=== PATIENT | female | born 1985 | race Hispanic/Latino ===

== ENCOUNTER 2018-11-10 12:14 | Day surgery (SDC) | payer BC ==
[2018-11-10] MEDS: NACL 0.9% 500 ML 500 ML IV SCH ×2 (13:26→15:15)
[2018-11-10] MEDS ORDERED: ADRENALIN ONE (14:52)
[2018-11-10] MEDS ORDERED: ATROPINE 0.1% (CARDIAC) ONE (14:52)
[2018-11-10] MEDS: NITROSTAT SL ONE ×2 (15:15→15:40)
[2018-11-10 16:33] VITALS: BP 122/80
--- NOTE | 2018-11-12 02:32 | Tilt Table Report ---
TILT TABLE TEST PREPROCEDURE DIAGNOSIS: Recurrent syncope. POSTPROCEDURE DIAGNOSES: 1. Recurrent syncope. 2. Negative tilt-table test. 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 She underwent passive head up tilt table testing with constant electrocardiogram and blood pressure monitoring. The tilt protocol was a baseline tilt followed by sublingual nitroglycerin given. The patient was tilted to 75 degrees in the erect position. During the procedure, the patient did develop some symptoms of nausea; however, she never lost consciousness. The patient was placed in the supine position after 45 minutes. The baseline heart rate was 126 beats per minute and was sinus rhythm. The baseline blood pressure was 126/84 mmHg. Upon initial erect position, the patient's heart rate went to 81 beats per minute and the patient's blood pressure was 122/77 mmHg. The patient was erect for 30 minutes with a stable blood pressure and heart rate. She did not develop any hypotension. She did not develop any bradycardia. The patient did have intermittent episodes of sinus tachycardia with heart rates up to 130 beats per minute. These sinus tachycardic episodes did not last for any significant amount of time. After the patient was given sublingual nitroglycerin, she did not develop any significant symptoms. She did not have any significant hypotension. She did not have any significant bradycardia or tachycardia. The patient did not lose consciousness. COMPLICATIONS: None. ASSESSMENT: Negative tilt table test, no evidence of neurocardiogenic syncope. PLAN: The patient will follow up with Cardiology in 3-4 weeks. [facility]# [id number] ZEYAD/SHERRY
== END 2018-11-10 16:47 | disposition home or self-care (01) ==
LOC: CATHLABREC 12:14
PROVIDERS: ATTEND Internal Medicine Cardiovascular Disease
DX: R55 Syncope and collapse (principal); Z88.5 Allergy status to narcotic agent; Z98.890 Other specified postprocedural states; Z82.5 Family history of asthma and other chronic lower respiratory diseases; Z83.49 Family history of other endocrine, nutritional and metabolic diseases; Z86.2 Personal history of diseases of the blood and blood-forming organs and certain disorders involving the immune mechanism; Z82.49 Family history of ischemic heart disease and other diseases of the circulatory system
CPT/HCPCS: 93660; J7040; J0171; J0461